=== PATIENT | female | born 1940 | race Caucasian/White ===

== ENCOUNTER 2020-12-17 10:20 | Observation (INO) | payer MEDICARE, BC ==
[~2020-12-17] VITALS: Ht 160 cm; Wt 58.7 kg
[2020-12-17] MEDS ORDERED: SODIUM CHLORIDE FLUSH 10ML SYR IVF ONE (10:30)
[2020-12-17] MEDS ORDERED: ASPIRIN 81 MG TABLET CHEW PO ONE (10:30)
[2020-12-17 10:52] LABS: BASOPHILS % (AUTO) 0 % (0-1); EOSINOPHILS % (AUTO) 2 % (1-7); LYMPHOCYTES % (AUTO) 16 % (22-44); MEAN CORPUSCULAR HEMOGLOBIN 32.6 pg (27.0-34.8); MEAN PLATELET VOLUME 8.3 fL (7.4-10.4); MONOCYTES % (AUTO) 15 % (2-9); NEUTROPHILS % (AUTO) 67 % (42-75); PLATELET COUNT 180 x10^3/uL (130-400); RED BLOOD COUNT 4.76 x10^6/uL (3.82-5.3); RED CELL DISTRIBUTION WIDTH 13.4 % (9.6-15.2)
[2020-12-17] MEDS ORDERED: PLEASE ENTER ALLERGIES MC SCH (11:00)
[2020-12-17] MEDS ORDERED: PLEASE ENTER HEIGHT AND WEIGHT MC SCH (11:00)
[2020-12-17 11:04] LABS: ALANINE AMINOTRANSFERASE 22 U/L (12-78); ALBUMIN 3.2 g/dL (3.4-5.0); ANION GAP 6 mmol/L (5-15); CALCIUM 8.6 mg/dL (8.5-10.1); CHLORIDE 109 mmol/L (98-107); CREATININE 0.54 mg/dL (0.55-1.02)
[2020-12-17 11:08] LABS: ALKALINE PHOSPHATASE 73 U/L (45-117); BILIRUBIN,TOTAL 0.7 mg/dL (0.2-1.0); TOTAL PROTEIN 6.5 g/dL (6.4-8.2); TROPONIN I < 0.015 ng/mL (0.000-0.045)
[2020-12-17] MEDS ORDERED: ASPIRIN 81 MG TABLET CHEW ONE (11:09)
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
--- NOTE | 2020-12-17 12:08 | NUR ---
REPORT TO ELEN ADAIR
[2020-12-17] MEDS ORDERED: LORazepam 2 MG/ML, 1ML IVPush PRN (13:00)
[2020-12-17] MEDS ORDERED: DOCUSATE 100 MG CAPSULE PO PRN (13:00)
[2020-12-17] MEDS ORDERED: TEMAZEPAM 15 MG CAPSULE PO PRN (13:00)
[2020-12-17] MEDS ORDERED: ACETAMINOPHEN 325 MG TABLET PO PRN (13:00)
[2020-12-17] MEDS ORDERED: MELATONIN 5 MG TABLET PO PRN (13:00)
[2020-12-17] MEDS ORDERED: POLYETHYLENE GLYCOL 17 GM PACKET PO PRN (13:00)
[2020-12-17] MEDS ORDERED: BISACODYL 10 MG SUPP PR PRN (13:00)
[2020-12-17] MEDS ORDERED: hydrALAzine 20 MG/ML, 1ML IVPush PRN (13:00)
[2020-12-17] MEDS ORDERED: MELA10CA PO (13:07)
[2020-12-17 13:25] VITALS: BP 122/80
[2020-12-17] MEDS ORDERED: MORPHINE SULFATE 4 MG/ML, 1ML IVPush PRN (13:30)
[2020-12-17] MEDS ORDERED: NITROGLYCERIN SINGLE TAB 0.4 MG SL PRN (13:30)
[2020-12-17] MEDS: ONDANSETRON 2MG/ML, 2ML IVPush PRN (14:50)
[2020-12-17 14:59] LABS: TROPONIN I < 0.015 ng/mL (0.000-0.045)
[2020-12-17] MEDS ORDERED: ALUMINUM/MAG/SIMETHICONE 30 ML UDC PO PRN (15:00)
[2020-12-17] MEDS: PANTOPRAZOLE 40MG TABLET PO SCH (15:16)
[2020-12-17] MEDS: SODIUM CHLORIDE 0.9% 1,000 ML IV SCH (16:12)
[2020-12-17] MEDS ORDERED: OMNIPAQUE 350 MG/ML, 75ML BOTTLE ONE (19:09)
[2020-12-17 19:27] VITALS: BP 117/76
[2020-12-17] MEDS ORDERED: FAMOTIDINE 20 MG TABLET PO SCH (21:00)
[2020-12-17 21:18] LABS: TROPONIN I < 0.015 ng/mL (0.000-0.045)
[2020-12-18 01:12] VITALS: BP 125/82
[2020-12-18] MEDS: PANTOPRAZOLE 40MG TABLET PO SCH (04:30)
[2020-12-18] MEDS: HYDROcodone/APAP 5/325 TABLET PO PRN ×2 (04:30→08:43)
[2020-12-18] MEDS: SODIUM CHLORIDE 0.9% 1,000 ML IV SCH (04:31)
[2020-12-18 05:17] LABS: BASOPHILS % (AUTO) 0 % (0-1); EOSINOPHILS % (AUTO) 5 % (1-7); LYMPHOCYTES % (AUTO) 15 % (22-44); MEAN CORPUSCULAR HEMOGLOBIN 33.2 pg (27.0-34.8); MEAN CORPUSCULAR HGB CONC 35.2 g/dL (32.4-35.8); MEAN PLATELET VOLUME 8.2 fL (7.4-10.4); MONOCYTES % (AUTO) 14 % (2-9); NEUTROPHILS % (AUTO) 65 % (42-75); PLATELET COUNT 151 x10^3/uL (130-400); RED BLOOD COUNT 4.33 x10^6/uL (3.82-5.3); RED CELL DISTRIBUTION WIDTH 13.3 % (9.6-15.2)
[2020-12-18 05:27] LABS: CALCIUM 8.1 mg/dL (8.5-10.1); CHLORIDE 109 mmol/L (98-107); CHOLESTEROL, TOTAL 172 mg/dL (140-239); CREATININE 0.47 mg/dL (0.55-1.02); TRIGLYCERIDES 102 mg/dL (50-200); VLDL CHOLESTEROL 20 mg/dL (0-25)
[2020-12-18 05:32] LABS: CHOL/HDL RATIO 2.8; HDL CHOL % 35 % (28-40); HDL CHOLESTEROL (DIRECT) 61 mg/dL (40-60); LDL CHOLESTEROL,CALCULATED 91 mg/dL (54-169); LDL/HDL RATIO 1.5 (0.5-3.0); TROPONIN I < 0.015 ng/mL (0.000-0.045)
[2020-12-18 05:33] LABS: ANION GAP 5 mmol/L (5-15)
[2020-12-18] MEDS ORDERED: PANTOPRAZOLE 40MG TABLET PO SCH (06:00)
[2020-12-18 07:09] VITALS: BP 127/77
[2020-12-18] MEDS ORDERED: PANT40TA6 PO (08:02)
[2020-12-18] MEDS: ONDANSETRON 2MG/ML, 2ML IVPush PRN (08:43)
[2020-12-18] MEDS ORDERED: REGADENOSON 0.4 MG/5 ML SYRINGE ONE (08:54)
[2020-12-18] MEDS ORDERED: ZOLMITRIPTAN 2.5 MG PO ONE (13:00)
== END 2020-12-18 13:45 | disposition home or self-care (01) ==
LOC: ED 11:12 → INTOOBSV 11:57 → EDIP 11:57 → 5SO 12:54 → DCLOUNGE 12-18 13:40
PROVIDERS: ADMIT Internal Medicine Infectious Disease; ATTEND Hospitalist
DX: R07.89 Other chest pain (principal); R94.31 Abnormal electrocardiogram [ECG] [EKG]; K20.90 Esophagitis, unspecified without bleeding; K29.70 Gastritis, unspecified, without bleeding; G43.909 Migraine, unspecified, not intractable, without status migrainosus; M48.50XA Collapsed vertebra, not elsewhere classified, site unspecified, initial encounter for fracture; Z66 Do not resuscitate; Z79.899 Other long term (current) drug therapy
CPT/HCPCS: 36415; 71045; 71275; 78452; 80048; 80053; 80061; 82962; 83036; 83605; 83690; 83735; 84100; 84484; 85025; 93005; 93017; 96361; 96374; 96376; 99285; A9502; G0378; J2405; J2785; J7030; Q9967